=== PATIENT | female | born 1930 | race Caucasian/White ===

== ENCOUNTER 2018-06-17 15:37 | Inpatient (IN) | payer OTHER ==
[~2018-06-17] VITALS: Ht 157.5 cm; Wt 77.6 kg
[~2018-06-17 15:37] MED LIST: ALL100T PO; AMIODARONE PO; Apixaban Base PO; FURO40TA4 PO; LEV250T PO; MET5XLT PO; NAPHDRO11; POT10T PO
[2018-06-17 16:28] LABS: Basophils # (auto) 0 uL; Eosinophils # (auto) 0 uL; Lymphocytes # (auto) 0.5 uL; Monocytes # (auto) 0.8 uL; Neutrophils # (auto) 9.7 uL
[2018-06-17 16:30] LABS: Basophils % (auto) 0.3 % (0.0-2.0); Eosinophils % (auto) 0.3 % (0.0-7.0); Hemoglobin 18.6 g/dL (12.2-16.2); Lymphocytes % (auto) 4.8 % (10.0-50.0); Mean Corpuscular Hemoglobin 32.1 pg (28.0-32.0); Mean Corpuscular Volume 97.2 fL (80.0-100.0); Monocytes % (auto) 7.3 % (0.0-12.0); Neutrophils % (auto) 87.3 % (37.0-80.0); Nucleated Red Blood Cells % 0.2 %; Platelet Count (auto) 92 10^3/uL (140-450); Red Cell Distribution Width 16.3 % (11.8-14.3); White Blood Cell 11.2 10^3/uL (4.4-10.8)
[2018-06-17 16:36] LABS: Hematocrit 56.4 % (36.0-46.0)
[2018-06-17] MEDS ORDERED: SODIUM CHLORIDE 0.9% 1,000 ML IV ONE (16:43)
[2018-06-17 16:50] LABS: Albumin 3.5 g/dL (3.4-5.0); BUN/Creatinine Ratio 20.3; Calcium 8.3 mg/dL (8.5-10.1); Potassium 4.3 mmol/L (3.5-5.1)
[2018-06-17 16:53] LABS: Bilirubin, Total 3.3 mg/dL (0.2-1.0); Total Protein 7.4 g/dL (6.4-8.2)
[2018-06-17] MEDS ORDERED: DILTIAZEM HCL 25 MG/5 ML VIAL IV ONE ×2 (17:00)
[2018-06-17 17:09] LABS: Magnesium 2.7 mg/dL (1.6-2.6)
[2018-06-17] MEDS ORDERED: ASPirin-EC 81 mg tab PO ONE (17:45)
[2018-06-17] MEDS ORDERED: cefTRIAXone 1GM/50ML D5W 50 ML IV ONE (17:45)
[2018-06-17] MEDS ORDERED: ENOXAPARIN SOD 100 MG/1 ML SYRINGE SC ONE (17:45)
[2018-06-17 17:53] LABS: INR 1.28 (0.9-1.15); Partial Thromboplastin Time 27.5 sec (23.78-33.04); Prothrombin Time 13.5 sec (9.27-12.13)
[2018-06-17] MEDS ORDERED: MORPHINE SULFATE 4 MG/ML SYR/VIAL IV PRN ×2 (18:00)
[2018-06-17] MEDS ORDERED: ONDANSETRON HCL 4 MG/2 ML VIAL IV PRN (18:00)
[2018-06-17] MEDS ORDERED: TEMAZEPAM 15 MG CAP PO PRN (18:00)
[2018-06-17] MEDS ORDERED: ALBUTEROL SULF 2.5 MG/0.5ML(0.5%) NEB SOLN NEB PRN (18:00)
[2018-06-17] MEDS ORDERED: DILTIAZEM 125mg/125ml BAG KIT 125 ML IV ONE (18:00)
[2018-06-17] MEDS ORDERED: HYDROcodone-ACET 5/325MG TAB PO PRN (18:00)
[2018-06-17] MEDS ORDERED: NITROGLYCERIN 0.4 MG SL TAB SL PRN (18:00)
[2018-06-17] MEDS ORDERED: DEXTROSE (50%) 50ML SYRG IV PRN (18:00)
[2018-06-17] MEDS ORDERED: LORazepam 0.5 MG TAB PO PRN (18:00)
[2018-06-17] MEDS ORDERED: ACETAMINOPHEN 500 MG TAB PO PRN (18:00)
[2018-06-17] MEDS: ACCU-CHEK COMFORT CURVE STRIP VI SCH (18:15)
[2018-06-17] MEDS: ALBUTEROL SULF 2.5 MG/0.5ML(0.5%) NEB SOLN NEB SCH (18:52)
[2018-06-17] MEDS: IPRATROPIUM BROM 0.5 MG/2.5ML INH SOL NEB SCH (18:52)
[2018-06-17 18:56] LABS: Lactic Acid w/Reflex 2.2 mmol/L (0.4-2.0)
[2018-06-17 19:45] VITALS: BP 141/87
[2018-06-17] MEDS ORDERED: AMIODARONE HCL 200 MG TAB PO SCH (22:00)
[2018-06-17] MEDS ORDERED: APIXABAN BASE 5 MG PO SCH (22:00)
[2018-06-17] MEDS: APIXABAN 2.5 MG TAB PO SCH (22:24)
[2018-06-17] MEDS: GENTAMICIN OPTH sol 0.3% 5ml EACHEYE SCH (22:24)
[2018-06-17 23:00] VITALS: BP 122/85
[2018-06-17 23:31] VITALS: BP 122/85
[2018-06-17 23:39] LABS: Urine Bacteria FEW /hpf (None Seen); Urine Blood 3+ /uL (Negative); Urine Hyaline Cast MANY /lpf (0 - 2); Urine Mucus FEW (None Seen); Urine Specific Gravity 1.023 (1.001-1.035); Urine WBC 33 /hpf (0 - 5)
[2018-06-18] VITALS (17 sets, daily range): BP systolic 107–157; BP diastolic 44–92
[2018-06-18] MEDS: ALBUTEROL SULF 2.5 MG/0.5ML(0.5%) NEB SOLN NEB SCH ×4 (00:25→19:14)
[2018-06-18] MEDS: IPRATROPIUM BROM 0.5 MG/2.5ML INH SOL NEB SCH ×4 (00:25→19:14)
[2018-06-18] MEDS: ACCU-CHEK COMFORT CURVE STRIP VI SCH ×3 (00:40→11:51)
[2018-06-18] MEDS ORDERED: DILTIAZEM HCL 25 MG/5 ML VIAL IV ONE (01:18)
[2018-06-18] MEDS: GENTAMICIN OPTH sol 0.3% 5ml EACHEYE SCH ×6 (02:05→22:00)
[2018-06-18] MEDS ORDERED: POTASSIUM CHL 20 Meq TABLET PO SCH (10:00)
[2018-06-18] MEDS ORDERED: POTASSIUM CHL 10 Meq TABLET PO SCH (10:00)
[2018-06-18] MEDS: ENALAPRIL MALEATE 2.5 MG TAB PO SCH (10:00)
[2018-06-18] MEDS: LEVOFLOXACIN 250MG 50 ML IV SCH (10:33)
[2018-06-18 10:52] LABS: Basophils # (auto) 0 uL; Basophils % (auto) 0.5 % (0.0-2.0); Eosinophils # (auto) 0 uL; Eosinophils % (auto) 0.5 % (0.0-7.0); Hematocrit 52.5 % (36.0-46.0); Hemoglobin 17.3 g/dL (12.2-16.2); Lymphocytes # (auto) 0.7 uL; Lymphocytes % (auto) 7.3 % (10.0-50.0); Mean Corpuscular Hemoglobin 32.2 pg (28.0-32.0); Mean Corpuscular Volume 97.7 fL (80.0-100.0); Monocytes # (auto) 0.9 uL; Monocytes % (auto) 9.4 % (0.0-12.0); Neutrophils % (auto) 82.3 % (37.0-80.0); Nucleated Red Blood Cells % 0.4 %; Platelet Count (auto) 80 10^3/uL (140-450); Red Blood Cells 5.37 10^6/uL (4.0-5.20); Red Cell Distribution Width 16.5 % (11.8-14.3); White Blood Cell 9.8 10^3/uL (4.4-10.8)
[2018-06-18] MEDS: ASPirin 81 mg TAB PO SCH (11:01)
[2018-06-18] MEDS: APIXABAN 2.5 MG TAB PO SCH ×2 (11:01→21:27)
[2018-06-18] MEDS: METOPROLOL SUCCINATE XL 50 MG TAB PO SCH (11:02)
[2018-06-18] MEDS: PANTOPRAZOLE 40 MG TAB PO SCH (11:02)
[2018-06-18] MEDS: ALLOPURINOL 100 MG TAB PO SCH (11:02)
[2018-06-18] MEDS: FUROSEMIDE 40 MG/4 ML VIAL IV SCH (11:03)
[2018-06-18 11:05] LABS: BUN/Creatinine Ratio 23.9; Potassium 4.4 mmol/L (3.5-5.1)
[2018-06-18 11:08] LABS: Bilirubin, Total 2.2 mg/dL (0.2-1.0); Total Protein 6.3 g/dL (6.4-8.2)
[2018-06-18] MEDS: AMIODARONE HCL 200 MG TAB PO SCH ×2 (14:47→21:26)
[2018-06-19] VITALS (8 sets, daily range): BP systolic 103–184; BP diastolic 59–88
[2018-06-19] MEDS: IPRATROPIUM BROM 0.5 MG/2.5ML INH SOL NEB SCH ×4 (01:35→18:21)
[2018-06-19] MEDS: ALBUTEROL SULF 2.5 MG/0.5ML(0.5%) NEB SOLN NEB SCH ×4 (01:35→18:21)
[2018-06-19] MEDS: GENTAMICIN OPTH sol 0.3% 5ml EACHEYE SCH ×6 (02:00→22:22)
[2018-06-19 05:59] LABS: Basophils # (auto) 0 uL; Basophils % (auto) 0.3 % (0.0-2.0); Eosinophils # (auto) 0.1 uL; Eosinophils % (auto) 0.7 % (0.0-7.0); Hematocrit 47.9 % (36.0-46.0); Lymphocytes # (auto) 0.6 uL; Mean Corpuscular Hemoglobin 32.1 pg (28.0-32.0); Mean Corpuscular Hgb Conc. 33.4 g/dL (32.0-36.0); Mean Corpuscular Volume 96.3 fL (80.0-100.0); Monocytes % (auto) 11.3 % (0.0-12.0); Neutrophils # (auto) 7.4 uL; Neutrophils % (auto) 80.7 % (37.0-80.0); Nucleated Red Blood Cells % 0.1 %; Platelet Count (auto) 94 10^3/uL (140-450); Red Blood Cells 4.97 10^6/uL (4.0-5.20); Red Cell Distribution Width 16.1 % (11.8-14.3); White Blood Cell 9.1 10^3/uL (4.4-10.8)
[2018-06-19 06:11] LABS: Calcium 8.4 mg/dL (8.5-10.1); Potassium 4.4 mmol/L (3.5-5.1)
[2018-06-19 06:15] LABS: BUN/Creatinine Ratio 21.2
[2018-06-19] MEDS: APIXABAN 2.5 MG TAB PO SCH (10:00)
[2018-06-19] MEDS: POTASSIUM CHL 20 Meq TABLET PO SCH (11:54)
[2018-06-19] MEDS: LEVOFLOXACIN 250MG 50 ML IV SCH (11:54)
[2018-06-19] MEDS: ASPirin 81 mg TAB PO SCH (11:54)
[2018-06-19] MEDS: AMIODARONE HCL 200 MG TAB PO SCH ×2 (11:54→22:05)
[2018-06-19] MEDS: ENALAPRIL MALEATE 2.5 MG TAB PO SCH (11:55)
[2018-06-19] MEDS: PANTOPRAZOLE 40 MG TAB PO SCH (11:55)
[2018-06-19] MEDS: METOPROLOL SUCCINATE XL 50 MG TAB PO SCH (11:55)
[2018-06-19] MEDS: ALLOPURINOL 100 MG TAB PO SCH (11:55)
[2018-06-19] MEDS: FUROSEMIDE 40 MG/4 ML VIAL IV SCH (11:59)
[2018-06-19] MEDS ORDERED: APIXABAN 5 MG TAB PO SCH (22:00)
[2018-06-19] MEDS: APIXABAN 5 MG TAB PO SCH (22:05)
[2018-06-20] VITALS (7 sets, daily range): BP systolic 95–152; BP diastolic 50–96
[2018-06-20] MEDS: IPRATROPIUM BROM 0.5 MG/2.5ML INH SOL NEB SCH ×4 (00:26→18:10)
[2018-06-20] MEDS: ALBUTEROL SULF 2.5 MG/0.5ML(0.5%) NEB SOLN NEB SCH ×4 (00:27→18:10)
[2018-06-20] MEDS: GENTAMICIN OPTH sol 0.3% 5ml EACHEYE SCH ×6 (02:24→22:02)
[2018-06-20 04:36] LABS: Basophils # (auto) 0 uL; Basophils % (auto) 0.3 % (0.0-2.0); Eosinophils # (auto) 0.1 uL; Eosinophils % (auto) 1.6 % (0.0-7.0); Hemoglobin 15.7 g/dL (12.2-16.2); Lymphocytes # (auto) 0.6 uL; Lymphocytes % (auto) 7.6 % (10.0-50.0); Mean Corpuscular Hemoglobin 31.4 pg (28.0-32.0); Mean Corpuscular Hgb Conc. 32.8 g/dL (32.0-36.0); Mean Corpuscular Volume 95.9 fL (80.0-100.0); Monocytes # (auto) 0.8 uL; Monocytes % (auto) 9.6 % (0.0-12.0); Neutrophils # (auto) 6.7 uL; Neutrophils % (auto) 80.9 % (37.0-80.0); Nucleated Red Blood Cells % 0.1 %; Platelet Count (auto) 88 10^3/uL (140-450); Red Blood Cells 5.01 10^6/uL (4.0-5.20); Red Cell Distribution Width 16.2 % (11.8-14.3); White Blood Cell 8.3 10^3/uL (4.4-10.8)
[2018-06-20 04:53] LABS: Potassium 3.7 mmol/L (3.5-5.1)
[2018-06-20 05:00] LABS: BUN/Creatinine Ratio 24.8
[2018-06-20] MEDS ORDERED: IOHEXOL 350 MG/ML 100ML IJ ONE (08:15)
[2018-06-20] MEDS: PANTOPRAZOLE 40 MG TAB PO SCH (11:05)
[2018-06-20] MEDS: ASPirin 81 mg TAB PO SCH (11:05)
[2018-06-20] MEDS: APIXABAN 5 MG TAB PO SCH ×2 (11:05→22:03)
[2018-06-20] MEDS: POTASSIUM CHL 20 Meq TABLET PO SCH (11:05)
[2018-06-20] MEDS: LEVOFLOXACIN 250MG 50 ML IV SCH (11:05)
[2018-06-20] MEDS: AMIODARONE HCL 200 MG TAB PO SCH ×2 (11:06→22:02)
[2018-06-20] MEDS: ALLOPURINOL 100 MG TAB PO SCH (11:06)
[2018-06-20] MEDS: METOPROLOL SUCCINATE XL 50 MG TAB PO SCH (11:07)
[2018-06-20] MEDS: ENALAPRIL MALEATE 2.5 MG TAB PO SCH (11:08)
[2018-06-20] MEDS: FUROSEMIDE 40 MG/4 ML VIAL IV SCH (11:08)
[2018-06-20] MEDS: Ensure Enlive Strawberry 8oz Bottle PO SCH (18:00)
[2018-06-21] VITALS: BP 130/64
[2018-06-21] MEDS: GENTAMICIN OPTH sol 0.3% 5ml EACHEYE SCH ×6 (02:51→21:35)
[2018-06-21 04:00] VITALS: BP 105/64
[2018-06-21 04:23] LABS: Basophils # (auto) 0 uL; Basophils % (auto) 0.3 % (0.0-2.0); Eosinophils # (auto) 0.2 uL; Eosinophils % (auto) 1.6 % (0.0-7.0); Hematocrit 50.4 % (36.0-46.0); Hemoglobin 16.7 g/dL (12.2-16.2); Lymphocytes # (auto) 0.7 uL; Lymphocytes % (auto) 6.9 % (10.0-50.0); Mean Corpuscular Hgb Conc. 33.1 g/dL (32.0-36.0); Mean Corpuscular Volume 96.7 fL (80.0-100.0); Monocytes % (auto) 10.5 % (0.0-12.0); Neutrophils % (auto) 80.7 % (37.0-80.0); Nucleated Red Blood Cells % 0.1 %; Platelet Count (auto) 92 10^3/uL (140-450); Red Blood Cells 5.21 10^6/uL (4.0-5.20); Red Cell Distribution Width 16.1 % (11.8-14.3); White Blood Cell 9.9 10^3/uL (4.4-10.8)
[2018-06-21 04:36] LABS: Calcium 7.8 mg/dL (8.5-10.1); Potassium 3.8 mmol/L (3.5-5.1)
[2018-06-21 04:39] LABS: BUN/Creatinine Ratio 24.8
[2018-06-21] MEDS: IPRATROPIUM BROM 0.5 MG/2.5ML INH SOL NEB SCH ×4 (06:11→19:18)
[2018-06-21] MEDS: ALBUTEROL SULF 2.5 MG/0.5ML(0.5%) NEB SOLN NEB SCH ×4 (06:11→19:19)
[2018-06-21] MEDS: Ensure Enlive Strawberry 8oz Bottle PO SCH ×2 (08:43→17:38)
[2018-06-21] MEDS: PANTOPRAZOLE 40 MG TAB PO SCH (10:14)
[2018-06-21] MEDS: AMIODARONE HCL 200 MG TAB PO SCH ×2 (10:14→21:36)
[2018-06-21] MEDS: FUROSEMIDE 40 MG/4 ML VIAL IV SCH (10:14)
[2018-06-21] MEDS: METOPROLOL SUCCINATE XL 50 MG TAB PO SCH (10:14)
[2018-06-21] MEDS: ASPirin 81 mg TAB PO SCH (10:14)
[2018-06-21] MEDS: POTASSIUM CHL 20 Meq TABLET PO SCH (10:14)
[2018-06-21] MEDS: APIXABAN 5 MG TAB PO SCH ×2 (10:14→21:36)
[2018-06-21] MEDS: ENALAPRIL MALEATE 2.5 MG TAB PO SCH (10:15)
[2018-06-21] MEDS: ALLOPURINOL 100 MG TAB PO SCH (10:15)
[2018-06-21 12:00] VITALS: BP 114/69
[2018-06-21 16:00] VITALS: BP 109/49
[2018-06-21 20:00] VITALS: BP 91/44
[2018-06-21] MEDS: LACTULOSE 20Gm/30ML SOLN PO PRN (21:36)
[2018-06-22] VITALS: BP 101/68
[2018-06-22] MEDS: GENTAMICIN OPTH sol 0.3% 5ml EACHEYE SCH ×6 (01:55→22:30)
[2018-06-22 04:01] VITALS: BP 106/68
[2018-06-22] MEDS: ALBUTEROL SULF 2.5 MG/0.5ML(0.5%) NEB SOLN NEB SCH ×4 (06:07→19:59)
[2018-06-22] MEDS: IPRATROPIUM BROM 0.5 MG/2.5ML INH SOL NEB SCH ×4 (06:07→19:59)
[2018-06-22 07:50] VITALS: BP 118/79
[2018-06-22] MEDS ORDERED: HYDROcodone-ACET 5/325MG TAB PO PRN (09:30)
[2018-06-22] MEDS ORDERED: MORPHINE SULFATE 4 MG/ML SYR/VIAL IV PRN (09:30)
[2018-06-22] MEDS: FUROSEMIDE 40 MG/4 ML VIAL IV SCH (09:52)
[2018-06-22] MEDS: Ensure Enlive Strawberry 8oz Bottle PO SCH ×2 (09:53→17:34)
[2018-06-22] MEDS: APIXABAN 5 MG TAB PO SCH ×2 (09:54→22:29)
[2018-06-22] MEDS: AMIODARONE HCL 200 MG TAB PO SCH ×2 (09:54→22:29)
[2018-06-22] MEDS: POTASSIUM CHL 20 Meq TABLET PO SCH (09:54)
[2018-06-22] MEDS: ASPirin 81 mg TAB PO SCH (09:54)
[2018-06-22] MEDS: PANTOPRAZOLE 40 MG TAB PO SCH (09:55)
[2018-06-22] MEDS: ALLOPURINOL 100 MG TAB PO SCH (09:55)
[2018-06-22] MEDS: METOPROLOL SUCCINATE XL 50 MG TAB PO SCH (09:55)
[2018-06-22] MEDS: ENALAPRIL MALEATE 2.5 MG TAB PO SCH (09:56)
[2018-06-22 11:46] VITALS: BP 131/45
[2018-06-22 15:53] VITALS: BP 113/66
[2018-06-22 16:02] LABS: Hematocrit 51.9 % (36.0-46.0); Hemoglobin 17.3 g/dL (12.2-16.2)
[2018-06-22 19:54] VITALS: BP 102/65
[2018-06-23] VITALS: BP 120/63
[2018-06-23] MEDS: ALBUTEROL SULF 2.5 MG/0.5ML(0.5%) NEB SOLN NEB SCH ×4 (01:12→19:15)
[2018-06-23] MEDS: IPRATROPIUM BROM 0.5 MG/2.5ML INH SOL NEB SCH ×4 (01:12→19:15)
[2018-06-23] MEDS: GENTAMICIN OPTH sol 0.3% 5ml EACHEYE SCH ×6 (02:00→21:47)
[2018-06-23 04:00] VITALS: BP 127/55
[2018-06-23 05:35] LABS: Basophils # (auto) 0 uL; Basophils % (auto) 0.5 % (0.0-2.0); Eosinophils # (auto) 0.2 uL; Eosinophils % (auto) 2.5 % (0.0-7.0); Hematocrit 50.9 % (36.0-46.0); Hemoglobin 16.9 g/dL (12.2-16.2); Lymphocytes # (auto) 0.8 uL; Lymphocytes % (auto) 10.8 % (10.0-50.0); Mean Corpuscular Hemoglobin 31.9 pg (28.0-32.0); Mean Corpuscular Hgb Conc. 33.2 g/dL (32.0-36.0); Monocytes # (auto) 0.7 uL; Monocytes % (auto) 9.7 % (0.0-12.0); Neutrophils # (auto) 5.9 uL; Neutrophils % (auto) 76.5 % (37.0-80.0); Nucleated Red Blood Cells % 0.1 %; Platelet Count (auto) 103 10^3/uL (140-450); Red Cell Distribution Width 15.7 % (11.8-14.3); White Blood Cell 7.7 10^3/uL (4.4-10.8)
[2018-06-23 05:45] LABS: Calcium 8.4 mg/dL (8.5-10.1); Magnesium 2.3 mg/dL (1.6-2.6); Potassium 3.8 mmol/L (3.5-5.1)
[2018-06-23 05:50] LABS: BUN/Creatinine Ratio 27.6
[2018-06-23] MEDS: LACTULOSE 20Gm/30ML SOLN PO PRN (06:50)
[2018-06-23 08:15] VITALS: BP 124/81
[2018-06-23] MEDS: ENALAPRIL MALEATE 2.5 MG TAB PO SCH (09:54)
[2018-06-23] MEDS: PANTOPRAZOLE 40 MG TAB PO SCH (09:54)
[2018-06-23] MEDS: ASPirin 81 mg TAB PO SCH (09:54)
[2018-06-23] MEDS: APIXABAN 5 MG TAB PO SCH ×2 (09:55→21:48)
[2018-06-23] MEDS: METOPROLOL SUCCINATE XL 50 MG TAB PO SCH (09:55)
[2018-06-23] MEDS: AMIODARONE HCL 200 MG TAB PO SCH ×2 (09:55→21:48)
[2018-06-23] MEDS: POTASSIUM CHL 20 Meq TABLET PO SCH (09:56)
[2018-06-23] MEDS: ALLOPURINOL 100 MG TAB PO SCH (09:56)
[2018-06-23] MEDS: FUROSEMIDE 40 MG/4 ML VIAL IV SCH (09:56)
[2018-06-23] MEDS: Ensure Enlive Strawberry 8oz Bottle PO SCH ×2 (09:57→17:05)
[2018-06-23 12:00] VITALS: BP 132/67
[2018-06-23 14:15] LABS: Hematocrit 52.6 % (36.0-46.0); Hemoglobin 17.4 g/dL (12.2-16.2)
[2018-06-23 15:53] VITALS: BP 136/72
[2018-06-23 19:48] VITALS: BP 122/72
[2018-06-24] MEDS: ALBUTEROL SULF 2.5 MG/0.5ML(0.5%) NEB SOLN NEB SCH ×4 (00:51→18:14)
[2018-06-24] MEDS: IPRATROPIUM BROM 0.5 MG/2.5ML INH SOL NEB SCH ×4 (00:51→18:14)
[2018-06-24] MEDS: GENTAMICIN OPTH sol 0.3% 5ml EACHEYE SCH ×6 (02:00→22:36)
[2018-06-24 06:07] LABS: Basophils # (auto) 0 uL; Basophils % (auto) 0.6 % (0.0-2.0); Eosinophils # (auto) 0.1 uL; Eosinophils % (auto) 1.5 % (0.0-7.0); Hematocrit 52.6 % (36.0-46.0); Hemoglobin 17.2 g/dL (12.2-16.2); Lymphocytes # (auto) 0.8 uL; Lymphocytes % (auto) 9.8 % (10.0-50.0); Mean Corpuscular Hemoglobin 31.6 pg (28.0-32.0); Mean Corpuscular Hgb Conc. 32.7 g/dL (32.0-36.0); Mean Corpuscular Volume 96.7 fL (80.0-100.0); Monocytes # (auto) 0.7 uL; Monocytes % (auto) 9.1 % (0.0-12.0); Neutrophils # (auto) 6.2 uL; Nucleated Red Blood Cells % 0.1 %; Platelet Count (auto) 105 10^3/uL (140-450); Red Blood Cells 5.44 10^6/uL (4.0-5.20); Red Cell Distribution Width 15.6 % (11.8-14.3); White Blood Cell 7.8 10^3/uL (4.4-10.8)
[2018-06-24 06:21] LABS: INR 1.62 (0.9-1.15); Prothrombin Time 16.9 sec (9.27-12.13)
[2018-06-24 06:30] LABS: Calcium 8.2 mg/dL (8.5-10.1); Potassium 3.5 mmol/L (3.5-5.1)
[2018-06-24 06:32] LABS: BUN/Creatinine Ratio 29.6
[2018-06-24] MEDS: Ensure Enlive Strawberry 8oz Bottle PO SCH ×2 (08:00→18:20)
[2018-06-24] MEDS: FUROSEMIDE 40 MG/4 ML VIAL IV SCH (10:21)
[2018-06-24] MEDS: ENALAPRIL MALEATE 2.5 MG TAB PO SCH (10:22)
[2018-06-24] MEDS: POTASSIUM CHL 20 Meq TABLET PO SCH (10:22)
[2018-06-24] MEDS: APIXABAN 5 MG TAB PO SCH ×2 (10:22→22:37)
[2018-06-24] MEDS: AMIODARONE HCL 200 MG TAB PO SCH ×2 (10:23→22:37)
[2018-06-24] MEDS: METOPROLOL SUCCINATE XL 50 MG TAB PO SCH (10:23)
[2018-06-24] MEDS: ALLOPURINOL 100 MG TAB PO SCH (10:23)
[2018-06-24] MEDS: PANTOPRAZOLE 40 MG TAB PO SCH (10:23)
[2018-06-24] MEDS ORDERED: LEVOFLOXACIN 500MG 100 ML IV ONE (11:45)
[2018-06-24] MEDS ORDERED: DIGOXIN (250MCG/ML) 2 ML AMPULE IV ONE (11:45)
[2018-06-24 11:50] VITALS: BP 132/78
[2018-06-24] MEDS ORDERED: SODIUM CHLORIDE 0.9% 1,000 ML IV ONE (12:00)
[2018-06-24 15:49] VITALS: BP 104/61
[2018-06-24 19:52] VITALS: BP 116/66
[2018-06-24 22:00] VITALS: BP 116/78
[2018-06-25] MEDS: ALBUTEROL SULF 2.5 MG/0.5ML(0.5%) NEB SOLN NEB SCH ×5 (00:12→22:56)
[2018-06-25] MEDS: IPRATROPIUM BROM 0.5 MG/2.5ML INH SOL NEB SCH ×5 (00:12→22:56)
[2018-06-25] MEDS: GENTAMICIN OPTH sol 0.3% 5ml EACHEYE SCH ×6 (02:00→22:00)
[2018-06-25 05:00] VITALS: BP 135/80
[2018-06-25 05:04] VITALS: BP 110/71
[2018-06-25 05:22] LABS: Hematocrit 53.2 % (36.0-46.0); Hemoglobin 17.7 g/dL (12.2-16.2)
[2018-06-25 05:46] LABS: Potassium 4.2 mmol/L (3.5-5.1)
[2018-06-25] MEDS ORDERED: ALBUTEROL SULF 2.5 MG/0.5ML(0.5%) NEB SOLN ONE (05:49)
[2018-06-25] MEDS ORDERED: IPRATROPIUM BROM 0.5 MG/2.5ML INH SOL ONE (05:49)
[2018-06-25 05:54] LABS: Albumin 2.4 g/dL (3.4-5.0); BUN/Creatinine Ratio 28.7; Bilirubin, Total 1.9 mg/dL (0.2-1.0); Calcium 8.5 mg/dL (8.5-10.1)
[2018-06-25 09:00] VITALS: BP 118/40
[2018-06-25] MEDS: Ensure Enlive Strawberry 8oz Bottle PO SCH ×2 (09:04→18:09)
[2018-06-25] MEDS: POTASSIUM CHL 20 Meq TABLET PO SCH (09:40)
[2018-06-25] MEDS: ALLOPURINOL 100 MG TAB PO SCH (09:40)
[2018-06-25] MEDS: APIXABAN 5 MG TAB PO SCH ×2 (09:40→22:08)
[2018-06-25] MEDS: AMIODARONE HCL 200 MG TAB PO SCH ×2 (09:40→22:08)
[2018-06-25] MEDS: METOPROLOL SUCCINATE XL 50 MG TAB PO SCH (09:40)
[2018-06-25] MEDS: FUROSEMIDE 40 MG/4 ML VIAL IV SCH (09:41)
[2018-06-25] MEDS: ENALAPRIL MALEATE 2.5 MG TAB PO SCH (09:41)
[2018-06-25] MEDS: LEVOFLOXACIN 250MG 50 ML IV SCH (09:41)
[2018-06-25] MEDS: PANTOPRAZOLE 40 MG TAB PO SCH (09:43)
[2018-06-25] MEDS: LACTULOSE 20Gm/30ML SOLN PO PRN (10:31)
[2018-06-25] MEDS ORDERED: TEMAZEPAM 15 MG CAP PO PRN (11:00)
[2018-06-25] MEDS ORDERED: LORazepam 0.5 MG TAB PO PRN (11:00)
[2018-06-25] MEDS ORDERED: MORPHINE SULFATE 4 MG/ML SYR/VIAL IV PRN (11:00)
[2018-06-25] MEDS ORDERED: HYDROcodone-ACET 5/325MG TAB PO PRN (11:00)
[2018-06-25] MEDS ORDERED: LACTULOSE 20Gm/30ML SOLN PO PRN ×2 (11:45)
[2018-06-25 13:00] VITALS: BP 104/54
[2018-06-25 17:00] VITALS: BP 101/65
[2018-06-25] MEDS: DOCUSATE SOD 100 MG CAP PO SCH (22:08)
[2018-06-25 22:10] VITALS: BP 108/63
[2018-06-26] MEDS: GENTAMICIN OPTH sol 0.3% 5ml EACHEYE SCH ×6 (02:00→22:42)
[2018-06-26 05:05] VITALS: BP 130/93
[2018-06-26] MEDS: ALBUTEROL SULF 2.5 MG/0.5ML(0.5%) NEB SOLN NEB SCH ×3 (05:57→18:34)
[2018-06-26] MEDS: IPRATROPIUM BROM 0.5 MG/2.5ML INH SOL NEB SCH ×3 (05:58→18:34)
[2018-06-26 06:23] LABS: Hemoglobin 17.8 g/dL (12.2-16.2)
[2018-06-26 06:26] LABS: Hematocrit 53.4 % (36.0-46.0)
[2018-06-26 06:37] VITALS: BP 130/93
[2018-06-26] MEDS: Ensure Enlive Strawberry 8oz Bottle PO SCH ×2 (08:22→18:10)
[2018-06-26 09:00] VITALS: BP 109/86
[2018-06-26] MEDS: LEVOFLOXACIN 250MG 50 ML IV SCH (11:00)
[2018-06-26] MEDS: FUROSEMIDE 40 MG/4 ML VIAL IV SCH (11:00)
[2018-06-26] MEDS: POTASSIUM CHL 20 Meq TABLET PO SCH (11:01)
[2018-06-26] MEDS: PANTOPRAZOLE 40 MG TAB PO SCH (11:01)
[2018-06-26] MEDS: APIXABAN 5 MG TAB PO SCH ×2 (11:01→22:42)
[2018-06-26] MEDS: DOCUSATE SOD 100 MG CAP PO SCH ×2 (11:01→22:42)
[2018-06-26] MEDS: AMIODARONE HCL 200 MG TAB PO SCH ×2 (11:01→22:42)
[2018-06-26] MEDS: ENALAPRIL MALEATE 2.5 MG TAB PO SCH (11:02)
[2018-06-26] MEDS: METOPROLOL SUCCINATE XL 50 MG TAB PO SCH (11:02)
[2018-06-26] MEDS: ALLOPURINOL 100 MG TAB PO SCH (11:03)
[2018-06-26 13:00] VITALS: BP 104/44
[2018-06-26 17:00] VITALS: BP 112/65
[2018-06-26 22:00] VITALS: BP 128/65
[2018-06-27] MEDS: IPRATROPIUM BROM 0.5 MG/2.5ML INH SOL NEB SCH ×4 (00:34→12:36)
[2018-06-27] MEDS: ALBUTEROL SULF 2.5 MG/0.5ML(0.5%) NEB SOLN NEB SCH ×4 (00:35→12:37)
[2018-06-27] MEDS: GENTAMICIN OPTH sol 0.3% 5ml EACHEYE SCH ×4 (02:23→14:00)
[2018-06-27 05:00] VITALS: BP 131/89
[2018-06-27 07:12] LABS: Basophils # (auto) 0.1 uL; Basophils % (auto) 1.1 % (0.0-2.0); Eosinophils # (auto) 0.1 uL; Eosinophils % (auto) 0.8 % (0.0-7.0); Hematocrit 52.4 % (36.0-46.0); Hemoglobin 17.1 g/dL (12.2-16.2); Lymphocytes # (auto) 0.9 uL; Lymphocytes % (auto) 12.2 % (10.0-50.0); Mean Corpuscular Hgb Conc. 32.7 g/dL (32.0-36.0); Mean Corpuscular Volume 94.9 fL (80.0-100.0); Monocytes # (auto) 0.9 uL; Monocytes % (auto) 11.3 % (0.0-12.0); Neutrophils # (auto) 5.7 uL; Neutrophils % (auto) 74.6 % (37.0-80.0); Nucleated Red Blood Cells % 0.1 %; Platelet Count (auto) 117 10^3/uL (140-450); Red Blood Cells 5.52 10^6/uL (4.0-5.20); Red Cell Distribution Width 15.5 % (11.8-14.3); White Blood Cell 7.6 10^3/uL (4.4-10.8)
[2018-06-27 07:22] LABS: BUN/Creatinine Ratio 23.1; Calcium 8.6 mg/dL (8.5-10.1); Magnesium 2.2 mg/dL (1.6-2.6); Potassium 3.2 mmol/L (3.5-5.1)
[2018-06-27] MEDS: Ensure Enlive Strawberry 8oz Bottle PO SCH (08:00)
[2018-06-27 08:44] VITALS: BP 146/82
[2018-06-27] MEDS: LEVOFLOXACIN 250MG 50 ML IV SCH (09:51)
[2018-06-27] MEDS: METOPROLOL SUCCINATE XL 50 MG TAB PO SCH (09:52)
[2018-06-27] MEDS: DOCUSATE SOD 100 MG CAP PO SCH (09:52)
[2018-06-27] MEDS: APIXABAN 5 MG TAB PO SCH (09:52)
[2018-06-27] MEDS: ALLOPURINOL 100 MG TAB PO SCH (09:52)
[2018-06-27] MEDS: POTASSIUM CHL 20 Meq TABLET PO SCH (09:53)
[2018-06-27] MEDS: AMIODARONE HCL 200 MG TAB PO SCH (09:53)
[2018-06-27] MEDS: PANTOPRAZOLE 40 MG TAB PO SCH (09:56)
[2018-06-27 12:11] VITALS: BP 118/78
[2018-06-27] MEDS ORDERED: AMI200T PO (12:36)
[2018-06-27] MEDS ORDERED: FURO20TA PO (12:36)
[2018-06-27] MEDS ORDERED: GEN03OS EACHEYE (12:36)
[2018-06-27] MEDS ORDERED: ALBUAER3 IN (12:36)
[2018-06-27] MEDS ORDERED: POTA20TA53 PO (12:36)
[2018-06-27] MEDS ORDERED: DOCU100C8 PO (12:36)
[2018-06-27] MEDS ORDERED: [UNRECOGNIZED DRUG - CODE] PO (12:36)
[2018-06-27] MEDS ORDERED: PANT40T PO (12:36)
[2018-06-27] MEDS ORDERED: MET5XLT PO (12:36)
[2018-06-27] MEDS ORDERED: APIX5TAB PO (12:36)
[2018-06-27 13:27] VITALS: BP 146/82
[2018-06-27 17:24] VITALS: BP 116/71
[2018-06-28] MEDS ORDERED: FUROSEMIDE 40 MG TAB PO SCH (10:00)
== END 2018-06-27 17:47 | disposition hospice, home (50) | DRG 280 ==
LOC: ER 15:41 → OVERFLOW 15:42 → DOU IN ICU 22:14 → TELE-EAST 06-24 20:54
PROVIDERS: ADMIT Internal Medicine; ATTEND Internal Medicine
PROC: 0W993ZZ Drainage of Right Pleural Cavity, Percutaneous Approach (ICD-10-PCS; principal; 2018-06-23)
DX: I21.A1 Myocardial infarction type 2 (principal); I50.43 Acute on chronic combined systolic (congestive) and diastolic (congestive) heart failure; J18.9 Pneumonia, unspecified organism; J96.00 Acute respiratory failure, unspecified whether with hypoxia or hypercapnia; N17.0 Acute kidney failure with tubular necrosis; I26.99 Other pulmonary embolism without acute cor pulmonale; I13.0 Hypertensive heart and chronic kidney disease with heart failure and stage 1 through stage 4 chronic kidney disease, or unspecified chronic kidney disease; E44.0 Moderate protein-calorie malnutrition; N39.0 Urinary tract infection, site not specified; J90 Pleural effusion, not elsewhere classified; I82.412 Acute embolism and thrombosis of left femoral vein; H10.9 Unspecified conjunctivitis; I48.2 Chronic atrial fibrillation; D69.6 Thrombocytopenia, unspecified; F03.90 Unspecified dementia, unspecified severity, without behavioral disturbance, psychotic disturbance, mood disturbance, and anxiety; I27.20 Pulmonary hypertension, unspecified; I48.0 Paroxysmal atrial fibrillation; M10.9 Gout, unspecified; N18.3 Chronic kidney disease, stage 3 (moderate); Z22.322 Carrier or suspected carrier of Methicillin resistant Staphylococcus aureus; Z86.711 Personal history of pulmonary embolism; Z79.01 Long term (current) use of anticoagulants; Z68.31 Body mass index [BMI] 31.0-31.9, adult; Z86.14 Personal history of Methicillin resistant Staphylococcus aureus infection; Z86.718 Personal history of other venous thrombosis and embolism; Z88.0 Allergy status to penicillin
CPT/HCPCS: 32555; 36415; 51702; 71045; 71275; 74176; 76604; 76942; 80048; 80053; 80061; 81001; 82550; 82962; 83036; 83605; 83735; 83880; 83986; 84443; 84484; 85014; 85018; 85025; 85610; 85730; 87040; 87081; 87086; 87205; 87804; 89051; 93005; 93306; 93971; 94640; 96361; 96365; 96375; 97110; 97116; 97163; 97530; A6257; G0378; J0696; J1956

== ENCOUNTER 2018-07-17 13:05 | Inpatient (IN) | payer OTHER ==
[~2018-07-17] VITALS: Ht 167.6 cm; Wt 76.2 kg
[~2018-07-17 13:05] MED LIST changes: +ALBUAER3 IN; +AMI200T PO; +APIX5TAB PO; +DOCU100C8 PO; +FURO20TA PO; +GEN03OS EACHEYE; +PANT40T PO; +POTA20TA53 PO; +[UNRECOGNIZED DRUG - CODE] PO
[2018-07-17] MEDS ORDERED: SODIUM CHLORIDE 0.9% 1,000 ML IV ONE (13:57)
[2018-07-17] MEDS ORDERED: VANCOMYCIN 1GM/250ML 250 ML IV ONE (14:00)
[2018-07-17 15:05] LABS: Basophils # (auto) 0.1 uL; Eosinophils # (auto) 0.1 uL; Eosinophils % (auto) 0.8 % (0.0-7.0); Mean Corpuscular Hemoglobin 31.5 pg (28.0-32.0); Nucleated Red Blood Cells % 0.3 %; White Blood Cell 8.3 10^3/uL (4.4-10.8)
[2018-07-17 15:10] LABS: Basophils % (auto) 0.8 % (0.0-2.0); Hematocrit 55.6 % (36.0-46.0); Hemoglobin 18.5 g/dL (12.2-16.2); Lymphocytes # (auto) 0.9 uL; Lymphocytes % (auto) 10.4 % (10.0-50.0); Mean Corpuscular Hgb Conc. 33.2 g/dL (32.0-36.0); Mean Corpuscular Volume 94.9 fL (80.0-100.0); Monocytes # (auto) 0.7 uL; Monocytes % (auto) 8.9 % (0.0-12.0); Neutrophils # (auto) 6.5 uL; Neutrophils % (auto) 79.1 % (37.0-80.0); Platelet Count (auto) 100 10^3/uL (140-450); Red Blood Cells 5.86 10^6/uL (4.0-5.20); Red Cell Distribution Width 15.6 % (11.8-14.3)
[2018-07-17 15:14] LABS: INR 1.4 (0.9-1.15); Partial Thromboplastin Time 34.4 sec (23.78-33.04); Prothrombin Time 14.7 sec (9.27-12.13)
[2018-07-17 15:16] LABS: Chloride 106 mmol/L (98-107); Potassium 4.1 mmol/L (3.5-5.1); Sodium 144 mmol/L (136-145)
[2018-07-17] MEDS ORDERED: LORazepam 2MG/ML-1ML VIAL ONE (15:18)
[2018-07-17 15:25] LABS: Lactic Acid w/Reflex 2.2 mmol/L (0.4-2.0)
[2018-07-17] MEDS ORDERED: LORazepam 2MG/ML-1ML VIAL IV ONE (15:30)
[2018-07-17 16:01] LABS: Calcium 8.8 mg/dL (8.5-10.1)
[2018-07-17 16:08] LABS: Albumin 2.7 g/dL (3.4-5.0); Alkaline Phosphatase 99 U/L (45-117); Anion Gap 12 (5-15); BUN/Creatinine Ratio 13.2; Bilirubin, Total 1.6 mg/dL (0.2-1.0); Blood Urea Nitrogen 17 mg/dL (7-18); Carbon Dioxide 26 mmol/L (21-32); GFR African American 50 mL/min; GFR Non-African American 41 mL/min; Glucose 125 mg/dL (74-106); Total Protein 6.3 g/dL (6.4-8.2)
[2018-07-17 16:25] LABS: Alanine Aminotransferase 19 U/L (13-56); Aspartate Aminotransferase 21 U/L (15-37)
[2018-07-17 16:30] LABS: Blood Alcohol < 3.0 mg/dL (0-5)
[2018-07-17] MEDS ORDERED: LABETALOL HCL 5 MG/ML ML 20ML VIAL IV PRN (16:30)
[2018-07-17] MEDS ORDERED: MORPHINE SULFATE 4 MG/ML SYR/VIAL IV PRN (16:30)
[2018-07-17] MEDS ORDERED: LACTULOSE 20Gm/30ML SOLN PO PRN (16:30)
[2018-07-17] MEDS ORDERED: traMADol HCL 50 MG TAB PO PRN (16:30)
[2018-07-17] MEDS ORDERED: METOPROLOL TARTRATE 25 MG TAB PO ONE (16:30)
[2018-07-17] MEDS: METOPROLOL SUCCINATE XL 50 MG TAB PO SCH (16:30)
[2018-07-17] MEDS ORDERED: NITROGLYCERIN 0.4 MG SL TAB SL PRN (16:30)
[2018-07-17] MEDS ORDERED: TEMAZEPAM 15 MG CAP PO PRN (16:30)
[2018-07-17] MEDS: APIXABAN 5 MG TAB PO SCH ×3 (16:45→21:56)
[2018-07-17] MEDS ORDERED: ALBUTEROL SULF 2.5 MG/0.5ML(0.5%) NEB SOLN NEB PRN (16:45)
[2018-07-17] MEDS ORDERED: NITROGLYCERIN 0.2MG/HR TOPICAL PATCH TD ONE (16:45)
[2018-07-17] MEDS ORDERED: POTASSIUM CHL 20 Meq TABLET PO ONE (16:45)
[2018-07-17] MEDS ORDERED: APIXABAN 5 MG TAB PO ONE (16:45)
[2018-07-17] MEDS ORDERED: PANTOPRAZOLE 40 MG TAB PO ONE (16:45)
[2018-07-17] MEDS: DOCUSATE SOD 100 MG CAP PO SCH ×3 (16:45→21:56)
[2018-07-17] MEDS ORDERED: ENALAPRIL MALEATE 2.5 MG TAB PO ONE (16:45)
[2018-07-17] MEDS ORDERED: FUROSEMIDE 40 MG/4 ML VIAL IV ONE (17:00)
[2018-07-17 18:34] LABS: Urine Bacteria FEW /hpf (None Seen); Urine Blood 3+ /uL (Negative); Urine WBC 3326 /hpf (0 - 5); Urine WBC Clumps PRESENT /hpf (None Seen)
[2018-07-17 18:36] LABS: Urine Specific Gravity 1.022 (1.001-1.035)
[2018-07-17 19:28] VITALS: BP 104/38
[2018-07-17] MEDS: ALBUTEROL SULF 2.5 MG/0.5ML(0.5%) NEB SOLN NEB SCH (19:40)
[2018-07-17] MEDS: LORazepam 0.5 MG TAB PO PRN (19:59)
[2018-07-17 20:18] VITALS: BP 104/38
[2018-07-17 20:55] VITALS: BP 132/65
[2018-07-17 20:59] VITALS: BP 126/91
[2018-07-17] MEDS ORDERED: AMIODARONE HCL 200 MG TAB PO SCH (22:00)
[2018-07-18] MEDS: ALBUTEROL SULF 2.5 MG/0.5ML(0.5%) NEB SOLN NEB SCH ×4 (00:13→18:00)
[2018-07-18 04:48] VITALS: BP 137/105
[2018-07-18] MEDS: METOPROLOL SUCCINATE XL 50 MG TAB PO SCH (09:00)
[2018-07-18] MEDS: FUROSEMIDE 40 MG/4 ML VIAL IV SCH ×2 (09:39→18:59)
[2018-07-18] MEDS ORDERED: ENALAPRIL MALEATE 2.5 MG TAB PO SCH (10:00)
[2018-07-18] MEDS: ASPirin 81 mg TAB PO SCH (10:00)
[2018-07-18] MEDS ORDERED: ASPirin 81 mg TAB PO ONE (10:00)
[2018-07-18] MEDS ORDERED: FUROSEMIDE 40 MG/4 ML VIAL IV SCH (10:00)
[2018-07-18] MEDS: PANTOPRAZOLE 40 MG TAB PO SCH (10:00)
[2018-07-18] MEDS: ALLOPURINOL 100 MG TAB PO SCH (10:00)
[2018-07-18] MEDS: DOCUSATE SOD 100 MG CAP PO SCH ×2 (10:00→20:53)
[2018-07-18] MEDS: ENALAPRIL MALEATE 2.5 MG TAB PO SCH (10:00)
[2018-07-18] MEDS: POTASSIUM CHL 20 Meq TABLET PO SCH (10:00)
[2018-07-18] MEDS ORDERED: METOPROLOL TARTRATE 1MG/1ML-5ML VIAL IV ONE (11:15)
[2018-07-18] MEDS: NITROGLYCERIN 0.2MG/HR TOPICAL PATCH TD SCH (11:22)
[2018-07-18] MEDS ORDERED: DIGOXIN (250MCG/ML) 2 ML AMPULE IV ONE ×3 (11:30→23:00)
[2018-07-18] MEDS ORDERED: LEVOFLOXACIN 500MG 100 ML IV ONE (13:00)
[2018-07-18] MEDS ORDERED: AMIODARONE HCL 150 MG in D5W 5% 100 ML IV ONE (13:30)
[2018-07-18] MEDS ORDERED: ENOXAPARIN SOD 80 MG/0.8ML SYRINGE SC SCH ×2 (13:40→14:00)
[2018-07-18] MEDS ORDERED: AMIODARONE HCL 900 MG in DEXTROSE 500 ML IV SCH (13:45)
[2018-07-18] MEDS: ACETAMINOPHEN 500 MG TAB PO PRN (15:39)
[2018-07-18 15:44] VITALS: BP 93/56
[2018-07-18] MEDS ORDERED: FUROSEMIDE 40 MG/4 ML VIAL IV ONE (17:45)
[2018-07-18] MEDS: HALOPERIDOL LACTATE 5 MG/ML INJ VIAL IM PRN (18:56)
[2018-07-18 20:36] VITALS: BP 112/76
[2018-07-19 00:10] VITALS: BP 106/70
[2018-07-19] MEDS: HALOPERIDOL LACTATE 5 MG/ML INJ VIAL IM PRN ×2 (02:31→23:41)
[2018-07-19] MEDS: ALBUTEROL SULF 2.5 MG/0.5ML(0.5%) NEB SOLN NEB SCH ×5 (06:36→23:56)
[2018-07-19 08:00] VITALS: BP 138/84
[2018-07-19 08:16] LABS: Basophils # (auto) 0.1 uL; Eosinophils # (auto) 0.1 uL; Eosinophils % (auto) 2.1 % (0.0-7.0); Hematocrit 50.8 % (36.0-46.0); Hemoglobin 16.5 g/dL (12.2-16.2); Lymphocytes # (auto) 0.8 uL; Lymphocytes % (auto) 12.6 % (10.0-50.0); Mean Corpuscular Hemoglobin 30.7 pg (28.0-32.0); Mean Corpuscular Hgb Conc. 32.4 g/dL (32.0-36.0); Mean Corpuscular Volume 94.6 fL (80.0-100.0); Monocytes # (auto) 0.8 uL; Monocytes % (auto) 11.9 % (0.0-12.0); Neutrophils # (auto) 4.8 uL; Neutrophils % (auto) 72.4 % (37.0-80.0); Nucleated Red Blood Cells % 0.1 %; Platelet Count (auto) 74 10^3/uL (140-450); Red Blood Cells 5.38 10^6/uL (4.0-5.20); Red Cell Distribution Width 15.6 % (11.8-14.3); White Blood Cell 6.6 10^3/uL (4.4-10.8)
[2018-07-19 08:32] LABS: BUN/Creatinine Ratio 14.8; Calcium 8.3 mg/dL (8.5-10.1); Potassium 3.8 mmol/L (3.5-5.1)
[2018-07-19] MEDS: DOCUSATE SOD 100 MG CAP PO SCH ×2 (10:00→21:51)
[2018-07-19] MEDS: PANTOPRAZOLE 40 MG TAB PO SCH (10:00)
[2018-07-19] MEDS ORDERED: ENOXAPARIN SOD 80 MG/0.8ML SYRINGE SC SCH (10:00)
[2018-07-19] MEDS: ENALAPRIL MALEATE 2.5 MG TAB PO SCH (10:00)
[2018-07-19] MEDS: ASPirin 81 mg TAB PO SCH (10:00)
[2018-07-19] MEDS: POTASSIUM CHL 20 Meq TABLET PO SCH (10:00)
[2018-07-19] MEDS: APIXABAN 5 MG TAB PO SCH ×2 (10:45→21:51)
[2018-07-19] MEDS: NITROGLYCERIN 0.2MG/HR TOPICAL PATCH TD SCH (11:04)
[2018-07-19] MEDS: LEVOFLOXACIN 500MG 100 ML IV SCH (11:05)
[2018-07-19 11:50] VITALS: BP 152/68
[2018-07-19] MEDS: FUROSEMIDE 40 MG/4 ML VIAL IV SCH (11:59)
[2018-07-19] MEDS: METOPROLOL SUCCINATE XL 50 MG TAB PO SCH (12:00)
[2018-07-19] MEDS: ALLOPURINOL 100 MG TAB PO SCH (12:00)
[2018-07-19 15:50] VITALS: BP 145/78
[2018-07-19 19:51] VITALS: BP 123/65
[2018-07-20] VITALS (8 sets, daily range): BP systolic 103–155; BP diastolic 64–96
[2018-07-20] MEDS: ALBUTEROL SULF 2.5 MG/0.5ML(0.5%) NEB SOLN NEB SCH ×4 (06:37→18:20)
[2018-07-20] MEDS ORDERED: VANCOMYCIN PER PHARMACY 0 MG IV SCH (09:45)
[2018-07-20] MEDS ORDERED: VANCOMYCIN 1GM/250ML 250 ML IV ONE (09:45)
[2018-07-20] MEDS: DOCUSATE SOD 100 MG CAP PO SCH ×3 (10:00→22:51)
[2018-07-20] MEDS: POTASSIUM CHL 20 Meq TABLET PO SCH (10:04)
[2018-07-20] MEDS: APIXABAN 5 MG TAB PO SCH ×2 (10:04→22:51)
[2018-07-20] MEDS: ALLOPURINOL 100 MG TAB PO SCH (10:04)
[2018-07-20] MEDS: ENALAPRIL MALEATE 2.5 MG TAB PO SCH (10:05)
[2018-07-20] MEDS: METOPROLOL SUCCINATE XL 50 MG TAB PO SCH (10:05)
[2018-07-20] MEDS: DIGOXIN 0.25 MG TAB PO SCH (10:05)
[2018-07-20] MEDS: PANTOPRAZOLE 40 MG TAB PO SCH (10:06)
[2018-07-20] MEDS: ASPirin 81 mg TAB PO SCH (10:06)
[2018-07-20] MEDS: FUROSEMIDE 20 MG TAB PO SCH (10:06)
[2018-07-20] MEDS: LEVOFLOXACIN 500MG 100 ML IV SCH (11:31)
[2018-07-20] MEDS: CEFEPIME HYDROCHLORIDE 2 GM in SODIUM CHL 0.9% 50 ML IV SCH (15:04)
[2018-07-21] MEDS: CEFEPIME HYDROCHLORIDE 2 GM in SODIUM CHL 0.9% 50 ML IV SCH ×2 (03:05→16:27)
[2018-07-21 05:00] VITALS: BP 134/105
[2018-07-21 05:35] LABS: Basophils # (auto) 0 uL; Basophils % (auto) 0.5 % (0.0-2.0); Eosinophils # (auto) 0.2 uL; Eosinophils % (auto) 2.4 % (0.0-7.0); Hematocrit 51.5 % (36.0-46.0); Lymphocytes # (auto) 0.8 uL; Lymphocytes % (auto) 11.7 % (10.0-50.0); Mean Corpuscular Hemoglobin 31.2 pg (28.0-32.0); Mean Corpuscular Hgb Conc. 33.1 g/dL (32.0-36.0); Mean Corpuscular Volume 94.2 fL (80.0-100.0); Monocytes # (auto) 0.8 uL; Monocytes % (auto) 11.9 % (0.0-12.0); Neutrophils # (auto) 4.8 uL; Neutrophils % (auto) 73.5 % (37.0-80.0); Nucleated Red Blood Cells % 0.2 %; Platelet Count (auto) 73 10^3/uL (140-450); Red Blood Cells 5.47 10^6/uL (4.0-5.20); Red Cell Distribution Width 15.1 % (11.8-14.3); White Blood Cell 6.5 10^3/uL (4.4-10.8)
[2018-07-21] MEDS: ALBUTEROL SULF 2.5 MG/0.5ML(0.5%) NEB SOLN NEB SCH ×3 (06:03→19:51)
[2018-07-21 06:13] LABS: Albumin 2.1 g/dL (3.4-5.0); Potassium 3.5 mmol/L (3.5-5.1)
[2018-07-21 06:16] LABS: BUN/Creatinine Ratio 16.1; Bilirubin, Total 1.4 mg/dL (0.2-1.0); Total Protein 5.3 g/dL (6.4-8.2)
[2018-07-21 08:00] VITALS: BP 120/66
[2018-07-21] MEDS: ASPirin 81 mg TAB PO SCH (10:00)
[2018-07-21] MEDS: APIXABAN 5 MG TAB PO SCH ×2 (10:00→22:13)
[2018-07-21] MEDS ORDERED: VANCOMYCIN 1GM/250ML 250 ML IV SCH (11:00)
[2018-07-21] MEDS: PANTOPRAZOLE 40 MG TAB PO SCH (11:05)
[2018-07-21] MEDS: POTASSIUM CHL 20 Meq TABLET PO SCH (11:05)
[2018-07-21] MEDS: ALLOPURINOL 100 MG TAB PO SCH (11:06)
[2018-07-21] MEDS: DOCUSATE SOD 100 MG CAP PO SCH ×2 (11:06→22:12)
[2018-07-21] MEDS: ENALAPRIL MALEATE 2.5 MG TAB PO SCH (11:06)
[2018-07-21] MEDS: FUROSEMIDE 20 MG TAB PO SCH (11:06)
[2018-07-21] MEDS: METOPROLOL SUCCINATE XL 50 MG TAB PO SCH (11:07)
[2018-07-21] MEDS: DIGOXIN 0.25 MG TAB PO SCH (11:18)
[2018-07-21 13:17] VITALS: BP 123/84
[2018-07-21] MEDS: VANCOMYCIN 1GM/250ML 250 ML IV SCH ×2 (13:26→16:27)
[2018-07-21 16:30] VITALS: BP 128/76
[2018-07-21] MEDS: Ensure Enlive Strawberry 8oz Bottle PO SCH (19:00)
[2018-07-21 21:58] VITALS: BP 125/84
[2018-07-21] MEDS: ASCORBIC ACID 500 MG TAB PO SCH (22:13)
[2018-07-22] MEDS: ALBUTEROL SULF 2.5 MG/0.5ML(0.5%) NEB SOLN NEB SCH ×4 (00:32→19:33)
[2018-07-22 05:45] VITALS: BP 118/75
[2018-07-22 08:38] LABS: Basophils # (auto) 0 uL; Basophils % (auto) 0.5 % (0.0-2.0); Eosinophils # (auto) 0.2 uL; Eosinophils % (auto) 3.8 % (0.0-7.0); Hematocrit 52.6 % (36.0-46.0); Hemoglobin 17.2 g/dL (12.2-16.2); Lymphocytes # (auto) 0.9 uL; Lymphocytes % (auto) 13.4 % (10.0-50.0); Mean Corpuscular Hemoglobin 30.9 pg (28.0-32.0); Mean Corpuscular Hgb Conc. 32.7 g/dL (32.0-36.0); Mean Corpuscular Volume 94.6 fL (80.0-100.0); Monocytes # (auto) 0.6 uL; Monocytes % (auto) 10.1 % (0.0-12.0); Neutrophils # (auto) 4.7 uL; Neutrophils % (auto) 72.2 % (37.0-80.0); Nucleated Red Blood Cells % 0.3 %; Platelet Count (auto) 82 10^3/uL (140-450); Red Blood Cells 5.57 10^6/uL (4.0-5.20); Red Cell Distribution Width 15.6 % (11.8-14.3); White Blood Cell 6.4 10^3/uL (4.4-10.8)
[2018-07-22 09:00] VITALS: BP 116/73
[2018-07-22] MEDS: APIXABAN 5 MG TAB PO SCH ×2 (10:00→22:30)
[2018-07-22] MEDS: ASPirin 81 mg TAB PO SCH (10:00)
[2018-07-22] MEDS: Ensure Enlive Strawberry 8oz Bottle PO SCH ×3 (10:54→18:10)
[2018-07-22] MEDS: DOCUSATE SOD 100 MG CAP PO SCH ×2 (10:54→22:30)
[2018-07-22] MEDS: MULTIPLE VITAMINS W/ MINERALS TAB PO SCH (10:55)
[2018-07-22] MEDS: ASCORBIC ACID 500 MG TAB PO SCH ×2 (10:55→22:31)
[2018-07-22] MEDS: POTASSIUM CHL 20 Meq TABLET PO SCH (10:56)
[2018-07-22] MEDS: FUROSEMIDE 20 MG TAB PO SCH (10:56)
[2018-07-22] MEDS: ALLOPURINOL 100 MG TAB PO SCH (10:56)
[2018-07-22] MEDS: PANTOPRAZOLE 40 MG TAB PO SCH (10:56)
[2018-07-22] MEDS: METOPROLOL SUCCINATE XL 50 MG TAB PO SCH (10:57)
[2018-07-22] MEDS: ENALAPRIL MALEATE 2.5 MG TAB PO SCH (10:57)
[2018-07-22] MEDS: DIGOXIN 0.25 MG TAB PO SCH (10:59)
[2018-07-22] MEDS: VANCOMYCIN 1GM/250ML 250 ML IV SCH (11:26)
[2018-07-22 13:00] VITALS: BP 122/74
[2018-07-22] MEDS: CEFEPIME HYDROCHLORIDE 2 GM in SODIUM CHL 0.9% 50 ML IV SCH (14:20)
[2018-07-22 17:00] VITALS: BP 111/66
[2018-07-22 21:30] VITALS: BP 121/82
[2018-07-23] MEDS: CEFEPIME HYDROCHLORIDE 2 GM in SODIUM CHL 0.9% 50 ML IV SCH ×2 (02:39→14:31)
[2018-07-23 05:00] VITALS: BP 142/96
[2018-07-23] MEDS: ALBUTEROL SULF 2.5 MG/0.5ML(0.5%) NEB SOLN NEB SCH ×5 (06:50→19:24)
[2018-07-23] MEDS: Ensure Enlive Strawberry 8oz Bottle PO SCH ×3 (08:00→18:00)
[2018-07-23] MEDS: DOCUSATE SOD 100 MG CAP PO SCH ×2 (08:48→22:26)
[2018-07-23] MEDS: FUROSEMIDE 20 MG TAB PO SCH (08:48)
[2018-07-23] MEDS: ALLOPURINOL 100 MG TAB PO SCH (08:49)
[2018-07-23] MEDS: MULTIPLE VITAMINS W/ MINERALS TAB PO SCH (08:49)
[2018-07-23] MEDS: DIGOXIN 0.25 MG TAB PO SCH (08:49)
[2018-07-23] MEDS: ENALAPRIL MALEATE 2.5 MG TAB PO SCH (08:49)
[2018-07-23] MEDS: POTASSIUM CHL 20 Meq TABLET PO SCH (08:49)
[2018-07-23] MEDS: APIXABAN 5 MG TAB PO SCH ×2 (08:50→22:27)
[2018-07-23] MEDS: METOPROLOL SUCCINATE XL 50 MG TAB PO SCH (08:50)
[2018-07-23] MEDS: PANTOPRAZOLE 40 MG TAB PO SCH (08:50)
[2018-07-23] MEDS: ASCORBIC ACID 500 MG TAB PO SCH ×2 (08:50→22:26)
[2018-07-23] MEDS: ASPirin 81 mg TAB PO SCH (08:51)
[2018-07-23 08:54] VITALS: BP 133/76
[2018-07-23] MEDS: VANCOMYCIN 1GM/250ML 250 ML IV SCH (10:47)
[2018-07-23] MEDS: HALOPERIDOL LACTATE 5 MG/ML INJ VIAL IM PRN (10:55)
[2018-07-23] MEDS: LORazepam 0.5 MG TAB PO PRN (12:18)
[2018-07-23 13:00] VITALS: BP 113/79
[2018-07-23 17:00] VITALS: BP 142/85
[2018-07-23 22:00] VITALS: BP 115/73
[2018-07-24] MEDS: ALBUTEROL SULF 2.5 MG/0.5ML(0.5%) NEB SOLN NEB SCH ×5 (00:51→18:58)
[2018-07-24] MEDS: CEFEPIME HYDROCHLORIDE 2 GM in SODIUM CHL 0.9% 50 ML IV SCH ×2 (03:07→13:58)
[2018-07-24 04:50] VITALS: BP 115/73
[2018-07-24 05:14] LABS: Basophils # (auto) 0.1 uL; Basophils % (auto) 1.1 % (0.0-2.0); Eosinophils # (auto) 0.3 uL; Eosinophils % (auto) 4.5 % (0.0-7.0); Hematocrit 53.4 % (36.0-46.0); Hemoglobin 17.8 g/dL (12.2-16.2); Lymphocytes % (auto) 13.6 % (10.0-50.0); Mean Corpuscular Hemoglobin 31.3 pg (28.0-32.0); Mean Corpuscular Hgb Conc. 33.4 g/dL (32.0-36.0); Mean Corpuscular Volume 93.8 fL (80.0-100.0); Monocytes # (auto) 0.9 uL; Monocytes % (auto) 12.5 % (0.0-12.0); Neutrophils % (auto) 68.3 % (37.0-80.0); Nucleated Red Blood Cells % 0.1 %; Platelet Count (auto) 91 10^3/uL (140-450); Red Cell Distribution Width 15.4 % (11.8-14.3); White Blood Cell 7.3 10^3/uL (4.4-10.8)
[2018-07-24 07:06] LABS: BUN/Creatinine Ratio 14.8; Calcium 8.6 mg/dL (8.5-10.1); Potassium 4.5 mmol/L (3.5-5.1)
[2018-07-24] MEDS: Ensure Enlive Strawberry 8oz Bottle PO SCH ×3 (08:00→18:00)
[2018-07-24 08:50] VITALS: BP 140/81
[2018-07-24] MEDS: ASPirin 81 mg TAB PO SCH (09:13)
[2018-07-24] MEDS: POTASSIUM CHL 20 Meq TABLET PO SCH (09:14)
[2018-07-24] MEDS: APIXABAN 5 MG TAB PO SCH ×2 (09:14→22:43)
[2018-07-24] MEDS: DOCUSATE SOD 100 MG CAP PO SCH ×2 (09:14→22:43)
[2018-07-24] MEDS: DIGOXIN 0.25 MG TAB PO SCH (09:15)
[2018-07-24] MEDS: MULTIPLE VITAMINS W/ MINERALS TAB PO SCH (09:16)
[2018-07-24] MEDS: FUROSEMIDE 20 MG TAB PO SCH (09:16)
[2018-07-24] MEDS: METOPROLOL SUCCINATE XL 50 MG TAB PO SCH (09:17)
[2018-07-24] MEDS: PANTOPRAZOLE 40 MG TAB PO SCH (09:17)
[2018-07-24] MEDS: ASCORBIC ACID 500 MG TAB PO SCH ×2 (09:18→22:44)
[2018-07-24] MEDS: ENALAPRIL MALEATE 2.5 MG TAB PO SCH (09:18)
[2018-07-24] MEDS: ALLOPURINOL 100 MG TAB PO SCH (09:19)
[2018-07-24] MEDS: VANCOMYCIN 1GM/250ML 250 ML IV SCH (11:00)
[2018-07-24 13:00] VITALS: BP 136/82
[2018-07-24] MEDS: ACETAMINOPHEN 500 MG TAB PO PRN (15:37)
[2018-07-24 16:00] VITALS: BP 146/92
[2018-07-24 17:01] VITALS: BP 153/97
[2018-07-24 22:00] VITALS: BP 157/115
[2018-07-25] MEDS: ALBUTEROL SULF 2.5 MG/0.5ML(0.5%) NEB SOLN NEB SCH ×4 (00:47→18:34)
[2018-07-25] MEDS: CEFEPIME HYDROCHLORIDE 2 GM in SODIUM CHL 0.9% 50 ML IV SCH ×2 (02:41→14:00)
[2018-07-25 05:37] VITALS: BP 154/97
[2018-07-25] MEDS: Ensure Enlive Strawberry 8oz Bottle PO SCH ×3 (08:00→17:39)
[2018-07-25 09:00] VITALS: BP 143/79
[2018-07-25] MEDS: APIXABAN 5 MG TAB PO SCH ×2 (10:00→21:46)
[2018-07-25] MEDS: FUROSEMIDE 20 MG TAB PO SCH (10:00)
[2018-07-25] MEDS: METOPROLOL SUCCINATE XL 50 MG TAB PO SCH (10:00)
[2018-07-25] MEDS: POTASSIUM CHL 20 Meq TABLET PO SCH (10:00)
[2018-07-25] MEDS: ALLOPURINOL 100 MG TAB PO SCH (10:00)
[2018-07-25] MEDS: PANTOPRAZOLE 40 MG TAB PO SCH (10:00)
[2018-07-25] MEDS: MULTIPLE VITAMINS W/ MINERALS TAB PO SCH (10:00)
[2018-07-25] MEDS: DIGOXIN 0.25 MG TAB PO SCH (10:00)
[2018-07-25] MEDS: ENALAPRIL MALEATE 2.5 MG TAB PO SCH (10:00)
[2018-07-25] MEDS: ASCORBIC ACID 500 MG TAB PO SCH ×2 (10:00→21:46)
[2018-07-25] MEDS: DOCUSATE SOD 100 MG CAP PO SCH ×2 (10:00→22:00)
[2018-07-25] MEDS: ASPirin 81 mg TAB PO SCH (10:00)
[2018-07-25] MEDS: VANCOMYCIN 1GM/250ML 250 ML IV SCH (11:00)
[2018-07-25 17:19] VITALS: BP 147/102
[2018-07-25 21:01] VITALS: BP 144/99
[2018-07-26] MEDS: ALBUTEROL SULF 2.5 MG/0.5ML(0.5%) NEB SOLN NEB SCH ×4 (00:44→19:18)
[2018-07-26] MEDS: CEFEPIME HYDROCHLORIDE 2 GM in SODIUM CHL 0.9% 50 ML IV SCH ×2 (02:38→14:00)
[2018-07-26 05:27] VITALS: BP 143/79
[2018-07-26] MEDS: Ensure Enlive Strawberry 8oz Bottle PO SCH ×3 (08:00→18:00)
[2018-07-26 08:15] LABS: BUN/Creatinine Ratio 17.1; Calcium 8.7 mg/dL (8.5-10.1); Potassium 3.8 mmol/L (3.5-5.1)
[2018-07-26 09:00] VITALS: BP 128/82
[2018-07-26] MEDS: MULTIPLE VITAMINS W/ MINERALS TAB PO SCH (10:00)
[2018-07-26] MEDS: DIGOXIN 0.25 MG TAB PO SCH (10:00)
[2018-07-26] MEDS: PANTOPRAZOLE 40 MG TAB PO SCH (10:00)
[2018-07-26] MEDS: ASCORBIC ACID 500 MG TAB PO SCH ×2 (10:00→22:00)
[2018-07-26] MEDS: APIXABAN 5 MG TAB PO SCH ×2 (10:00→22:00)
[2018-07-26] MEDS: POTASSIUM CHL 20 Meq TABLET PO SCH (10:00)
[2018-07-26] MEDS: ENALAPRIL MALEATE 2.5 MG TAB PO SCH (10:00)
[2018-07-26] MEDS: ASPirin 81 mg TAB PO SCH (10:00)
[2018-07-26] MEDS: FUROSEMIDE 20 MG TAB PO SCH (10:00)
[2018-07-26] MEDS: ALLOPURINOL 100 MG TAB PO SCH (10:00)
[2018-07-26] MEDS: DOCUSATE SOD 100 MG CAP PO SCH ×2 (10:00→22:00)
[2018-07-26] MEDS: METOPROLOL SUCCINATE XL 50 MG TAB PO SCH (10:00)
[2018-07-26] MEDS: VANCOMYCIN 1GM/250ML 250 ML IV SCH (11:00)
[2018-07-26 12:35] VITALS: BP 142/80
[2018-07-26 17:00] VITALS: BP 126/83
[2018-07-26 22:00] VITALS: BP 110/82
[2018-07-27] MEDS: ALBUTEROL SULF 2.5 MG/0.5ML(0.5%) NEB SOLN NEB SCH ×3 (01:00→11:47)
[2018-07-27] MEDS: CEFEPIME HYDROCHLORIDE 2 GM in SODIUM CHL 0.9% 50 ML IV SCH (02:22)
[2018-07-27 05:00] VITALS: BP_SYST 130; BP_SYST 131; BP_DIAS 63; BP_DIAS 78
[2018-07-27 07:55] VITALS: BP 131/72
[2018-07-27] MEDS: Ensure Enlive Strawberry 8oz Bottle PO SCH ×2 (08:00→12:00)
[2018-07-27 09:00] VITALS: BP 138/71
[2018-07-27] MEDS: DIGOXIN 0.25 MG TAB PO SCH (09:20)
[2018-07-27] MEDS: METOPROLOL SUCCINATE XL 50 MG TAB PO SCH (09:28)
[2018-07-27] MEDS: PANTOPRAZOLE 40 MG TAB PO SCH (09:36)
[2018-07-27] MEDS: ENALAPRIL MALEATE 2.5 MG TAB PO SCH (09:36)
[2018-07-27] MEDS: ALLOPURINOL 100 MG TAB PO SCH (09:36)
[2018-07-27] MEDS: MULTIPLE VITAMINS W/ MINERALS TAB PO SCH (09:37)
[2018-07-27] MEDS: APIXABAN 5 MG TAB PO SCH (09:37)
[2018-07-27] MEDS: DOCUSATE SOD 100 MG CAP PO SCH (09:37)
[2018-07-27] MEDS: FUROSEMIDE 20 MG TAB PO SCH (09:37)
[2018-07-27] MEDS: POTASSIUM CHL 20 Meq TABLET PO SCH (09:37)
[2018-07-27] MEDS: ASPirin 81 mg TAB PO SCH (09:38)
[2018-07-27] MEDS: ASCORBIC ACID 500 MG TAB PO SCH (09:38)
[2018-07-27] MEDS: VANCOMYCIN 1GM/250ML 250 ML IV SCH (10:54)
[2018-07-28] MEDS ORDERED: VANCOMYCIN 750 MG in D5W 5% 250 ML IV SCH (11:00)
== END 2018-07-27 15:24 | disposition home health service (06) | DRG 871 ==
LOC: EDBD 13:05 → ER 13:05 → TELE-CENTR 16:10 → DOU IN ICU 07-18 15:38 → TELE-WESTW 07-20 14:30
PROVIDERS: ADMIT Internal Medicine; ATTEND Family Medicine
DX: A41.9 Sepsis, unspecified organism (principal); G93.41 Metabolic encephalopathy; I21.A1 Myocardial infarction type 2; I50.43 Acute on chronic combined systolic (congestive) and diastolic (congestive) heart failure; J96.00 Acute respiratory failure, unspecified whether with hypoxia or hypercapnia; E44.0 Moderate protein-calorie malnutrition; N39.0 Urinary tract infection, site not specified; B96.5 Pseudomonas (aeruginosa) (mallei) (pseudomallei) as the cause of diseases classified elsewhere; D69.6 Thrombocytopenia, unspecified; E86.0 Dehydration; F03.90 Unspecified dementia, unspecified severity, without behavioral disturbance, psychotic disturbance, mood disturbance, and anxiety; I11.0 Hypertensive heart disease with heart failure; M19.90 Unspecified osteoarthritis, unspecified site; R73.9 Hyperglycemia, unspecified; M10.9 Gout, unspecified; I48.2 Chronic atrial fibrillation; I50.82 Biventricular heart failure; Z22.322 Carrier or suspected carrier of Methicillin resistant Staphylococcus aureus; Z79.01 Long term (current) use of anticoagulants; Z86.711 Personal history of pulmonary embolism; Z86.73 Personal history of transient ischemic attack (TIA), and cerebral infarction without residual deficits; Z86.718 Personal history of other venous thrombosis and embolism; Z86.14 Personal history of Methicillin resistant Staphylococcus aureus infection; Z88.0 Allergy status to penicillin; Z68.27 Body mass index [BMI] 27.0-27.9, adult
CPT/HCPCS: 36415; 51702; 70450; 71045; 80048; 80053; 80162; 80202; 80320; 81001; 82140; 82550; 82565; 82962; 83605; 83880; 84443; 84484; 85025; 85610; 85730; 87040; 87081; 87086; 87088; 87186; 93005; 94640; 96374; 96375; A6257; G0378; J1956; J7060

== ENCOUNTER → 2018-07-30 | Outpatient (CLI) | payer OTHER ==
[2018-07-30 12:11] LABS: Basophils # (auto) 0.2 uL; Basophils % (auto) 2.9 % (0.0-2.0); Eosinophils # (auto) 0.2 uL; Hematocrit 51.1 % (36.0-46.0); Hemoglobin 16.7 g/dL (12.2-16.2); Lymphocytes # (auto) 0.9 uL; Lymphocytes % (auto) 12.6 % (10.0-50.0); Mean Corpuscular Hemoglobin 30.2 pg (28.0-32.0); Mean Corpuscular Hgb Conc. 32.6 g/dL (32.0-36.0); Mean Corpuscular Volume 92.7 fL (80.0-100.0); Monocytes # (auto) 0.8 uL; Monocytes % (auto) 11.8 % (0.0-12.0); Neutrophils # (auto) 4.9 uL; Neutrophils % (auto) 69.7 % (37.0-80.0); Nucleated Red Blood Cells % 0.1 %; Platelet Count (auto) 119 10^3/uL (140-450); Red Blood Cells 5.52 10^6/uL (4.0-5.20); Red Cell Distribution Width 15.6 % (11.8-14.3); White Blood Cell 7.1 10^3/uL (4.4-10.8)
[2018-07-30 13:04] LABS: Calcium 8.4 mg/dL (8.5-10.1); Potassium 3.2 mmol/L (3.5-5.1)
[2018-07-30 13:11] LABS: Albumin 2.4 g/dL (3.4-5.0); BUN/Creatinine Ratio 19.5; Bilirubin, Total 1.3 mg/dL (0.2-1.0); Total Protein 5.5 g/dL (6.4-8.2)
== END | disposition home or self-care (01) ==
LOC: LAB 11:29
PROVIDERS: ATTEND Internal Medicine
DX: G93.41 Metabolic encephalopathy (principal)
CPT/HCPCS: 36415; 80053; 80202; 85025

== ENCOUNTER 2018-07-31 17:32 | Emergency (ER) | payer OTHER ==
[~2018-07-31] VITALS: Ht 167.6 cm; Wt 65.8 kg
[2018-07-31 18:48] LABS: Basophils # (auto) 0 uL; Eosinophils # (auto) 0.2 uL; Hemoglobin 18.2 g/dL (12.2-16.2); Lymphocytes # (auto) 0.9 uL; Lymphocytes % (auto) 11.1 % (10.0-50.0); Mean Corpuscular Hemoglobin 30.9 pg (28.0-32.0); Neutrophils # (auto) 6.2 uL; Platelet Count (auto) 144 10^3/uL (140-450)
[2018-07-31 18:50] LABS: Basophils % (auto) 0.2 % (0.0-2.0); Eosinophils % (auto) 2.8 % (0.0-7.0); Hematocrit 54.9 % (36.0-46.0); Mean Corpuscular Hgb Conc. 33.1 g/dL (32.0-36.0); Mean Corpuscular Volume 93.2 fL (80.0-100.0); Monocytes % (auto) 11.5 % (0.0-12.0); Neutrophils % (auto) 74.4 % (37.0-80.0); Nucleated Red Blood Cells % 0.4 %; Red Blood Cells 5.89 10^6/uL (4.0-5.20); White Blood Cell 8.3 10^3/uL (4.4-10.8)
[2018-07-31 18:58] LABS: INR 1.18 (0.9-1.15); Partial Thromboplastin Time 29.5 sec (23.78-33.04); Prothrombin Time 12.5 sec (9.27-12.13)
[2018-07-31 19:08] LABS: Albumin 2.5 g/dL (3.4-5.0); Calcium 8.6 mg/dL (8.5-10.1); Potassium 3.6 mmol/L (3.5-5.1)
[2018-07-31 19:11] LABS: Bilirubin, Total 1.3 mg/dL (0.2-1.0); Total Protein 6.3 g/dL (6.4-8.2)
[2018-07-31] MEDS ORDERED: DILTIAZEM HCL 25 MG/5 ML VIAL IV ONE (21:30)
[2018-07-31 21:56] VITALS: BP 147/86
== END 2018-07-31 21:47 | disposition home or self-care (01) ==
LOC: EDBD 17:32 → ER 17:32
DX: M79.601 Pain in right arm (principal); I11.0 Hypertensive heart disease with heart failure; I50.9 Heart failure, unspecified; M10.9 Gout, unspecified; Z79.899 Other long term (current) drug therapy; Z88.0 Allergy status to penicillin
CPT/HCPCS: 36415; 71045; 73060; 80053; 83605; 85025; 85610; 85730; 87040; 93005; 93971; 96374